=== PATIENT | male | born 1975 | race Caucasian/White ===

== ENCOUNTER 2019-08-23 08:40 | Outpatient (CLI) | payer OTHER ==
--- NOTE | 2019-08-23 09:18 | RAD ---
XR Foot Lt 3 View STANDARD HISTORY: Injury, left foot pain FINDINGS: No fracture or dislocation is identified. Posterior and plantar calcaneal spurs are present.
== END 2019-08-23 08:41 | disposition home or self-care (01) ==
LOC: BURRAD 08:40
PROVIDERS: ATTEND Physician Assistant
DX: S99.922A Unspecified injury of left foot, initial encounter (principal); M77.32 Calcaneal spur, left foot

== ENCOUNTER 2022-12-01 12:47 | Outpatient (CLI) | payer BC | END 2022-12-01 12:48 | disposition home or self-care (01) | LOC: BURRAD 12:47 | PROVIDERS: ATTEND Family Medicine | DX: J40 Bronchitis, not specified as acute or chronic (principal) | CPT/HCPCS: 71046 ==